=== PATIENT | female | born 1970 | race Caucasian/White ===

== ENCOUNTER 2017-07-15 10:49 | Inpatient (IN) | payer SELFPAY ==
[~2017-07-15] VITALS: Ht 167.6 cm; Wt 53.6 kg
[~2017-07-15 10:49] MED LIST: CLON.1T PO; CLON1 PO; TRAM100T19 PO; VIST25CA PO; ZOFR4TAB3 SL
[2017-07-15 11:14] VITALS: BP 144/71; PULSE 89; RESP 20; TEMP 98.1; O2SAT 100
[2017-07-15] MEDS ORDERED: VANCOMYCIN INJ 1,000 MG in SODIUM CHLOR 0.9% 250 ML INJ 250 ML IV ONE (12:00)
[2017-07-15] MEDS ORDERED: SODIUM CHLOR 0.9% 1000 ML INJ 1,000 ML IV ONE (12:00)
[2017-07-15] MEDS ORDERED: oxyCODONE/ACETAMINOPHEN 5 MG/325 MG TAB PO ONE (12:00)
[2017-07-15 13:36] LABS: HEMATOCRIT 37.3 % (35.0-46.0); HEMOGLOBIN 12.6 GM/DL (11.6-15.3); MEAN CELL VOLUME 82.2 FL (80.0-100.0); MEAN CORPUSCULAR HEMOGLOBIN 27.7 PG (27.0-34.0); MEAN CORPUSCULAR HGB CONC 33.7 % (32.0-36.0); MEAN PLATELET VOLUME 8.5 FL (7.0-11.0); PLATELET COUNT 346 TH/MM3 (150-450); RED BLOOD COUNT 4.54 MIL/MM3 (4.00-5.30); RED CELL DISTRIBUTION WIDTH 14.2 % (11.6-17.2); WHITE BLOOD COUNT 11.8 TH/MM3 (4.0-11.0)
[2017-07-15 13:58] LABS: ALBUMIN 2.8 GM/DL (3.4-5.0); ALT (GPT) 29 U/L (10-53); AST (GOT) 27 U/L (15-37); BICARBONATE 21.8 MEQ/L (21.0-32.0); BLOOD UREA NITROGEN 10 MG/DL (7-18); CALCIUM 8.6 MG/DL (8.5-10.1); CHLORIDE 105 MEQ/L (98-107); CREATININE 0.38 MG/DL (0.50-1.00); GLOMERULAR FILTRATION RATE 182 ML/MIN (>89); GLUCOSE,RANDOM 87 MG/DL (74-106); SODIUM (NA) 138 MEQ/L (136-145)
[2017-07-15 14:00] LABS: ALKALINE PHOSPHATASE 122 U/L (45-117); TOTAL BILIRUBIN ADULT 0.4 MG/DL (0.2-1.0); TOTAL PROTEIN 7.5 GM/DL (6.4-8.2)
[2017-07-15 14:10] LABS: BANDS 7 % (0-6); LYMPHOCYTES 12 % (9-44); MONOCYTES 9 % (0-8); NEUTROPHIL # MANUAL DIFF 9.3 TH/MM3 (1.8-7.7); POLYS (SEG NEUTROPHILS) 72 % (16-70)
[2017-07-15] MEDS ORDERED: IOHEXOL 350 MG/ML 10 ML VIAL (for RAD DIAG) IVCONTRAST ONE (14:30)
--- NOTE | 2017-07-15 14:35 | PD ---
HPI Chief Complaint: Skin Problem Time Seen by Provider: 11:44 Travel History International Travel<30 days: No Contact w/Intl Traveler<30days: No Traveled to known affect area: No History of Present Illness HPI Patient is a 47 year old female who comes in complaining of painful sores to her arms and legs. 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 She says she is trying to quit and moved here from [facility] recently to try and get sober. She says these sores appeared about 4 days ago and have been getting worse. She denies fever or chills. She complains of pain to both arms and her right ankle. Severity is mild to moderate. PFSH Past Medical History Anxiety: Yes Depression: Yes Diminished Hearing: No Hepatitis: Yes (C) Psychiatric: Yes Reproductive: Yes (STD) Immunizations Current: No ?: Not Ectopic : Yes Dilation and Curettage (D&C): Yes Past Surgical History Abdominal Surgery: Yes (ABDOMINAL SURGERY ) Social History Alcohol Use: No Tobacco Use: Yes (1 PPD) Substance Use: Yes (heroine addict ) Allergies-Medications (Allergen,Severity, Reaction): Coded Allergies: No Known Allergies (Verified Allergy, Unknown, 07/15/17) Reported Meds & Prescriptions Reported Meds & Active Scripts Active Review of Systems Except as stated in HPI: all other systems reviewed are Neg General / Constitutional: No: Fever, Chills HENT: No: Headaches, Lightheadedness Cardiovascular: No: Chest Pain or Discomfort Respiratory: No: Shortness of Breath Gastrointestinal: No: Nausea, Vomiting Musculoskeletal: Positive: Pain Skin: Positive Lesions Neurologic: No: Weakness, Dizziness Physical Exam Narrative GENERAL: Awake and alert, in no acute distress. SKIN: Entire left forearm is erythema and warm with weeping sores. Area of erythema to right AC. Area of erythema to right medial malleolus. HEAD: Atraumatic. Normocephalic. EYES: Pupils equal and round. No scleral icterus. EOMI. ENT: Mucous membranes pink and moist. NECK: Trachea midline. No JVD. CARDIOVASCULAR: Regular rate and rhythm. No murmur appreciated. RESPIRATORY: No accessory muscle use. Clear to auscultation. Breath sounds equal bilaterally. GASTROINTESTINAL: Abdomen soft, non-tender, nondistended. MUSCULOSKELETAL: No obvious deformities. No clubbing. No cyanosis. No edema. NEUROLOGICAL: Awake and alert. No obvious cranial nerve deficits. Motor grossly within normal limits. Normal speech. PSYCHIATRIC: Appropriate mood and affect; insight and judgment normal. Data Data Last Documented VS Vital Signs Date Time Temp Pulse Resp B/P (MAP) Pulse Ox O2 Delivery O2 Flow Rate FiO2 07/15/17 11:14 98.1 89 20 144/71 (95) 100 Orders Orders Iv Access Insert/Monitor (07/15/17 11:59) Complete Blood Count With Diff (07/15/17 11:59) Comprehensive Metabolic Panel (07/15/17 11:59) C-Reactive Protein (Crp) (07/15/17 11:59) Ct Forearm W Iv Contrast (07/15/17 ) Ed Urine Pregnancytest Poc (07/15/17 11:59) Oxycodone-Acetamin 5-325 Mg (Percocet (07/15/17 12:00) Sodium Chlor 0.9% 1000 Ml Inj (Ns 1000 M (07/15/17 12:00) Vancomycin Inj (Vancomycin Inj) (07/15/17 12:00) Vascular Access Team Consult/P PRN (07/15/17 12:23) Vascular Poc Ultrasound (07/15/17 ) Iohexol 350 Inj (Omnipaque 350 Inj) (07/15/17 14:30) Wound Culture And Gram Stain (07/15/17 15:10) Admit Order (Ed Use Only) (07/15/17 ) Labs Laboratory Tests Test 07/15/17 12:50 White Blood Count 11.8 TH/MM3 Red Blood Count 4.54 MIL/MM3 Hemoglobin 12.6 GM/DL Hematocrit 37.3 % Mean Corpuscular Volume 82.2 FL Mean Corpuscular Hemoglobin 27.7 PG Mean Corpuscular Hemoglobin Concent 33.7 % Red Cell Distribution Width 14.2 % Platelet Count 346 TH/MM3 Mean Platelet Volume 8.5 FL CBC Comment AUTO DIFF Differential Total Cells Counted 100 Neutrophils % (Manual) 72 % Band Neutrophils % 7 % Lymphocytes % 12 % Monocytes % 9 % Neutrophils # (Manual) 9.3 TH/MM3 Differential Comment FINAL DIFF MANUAL Platelet Estimate NORMAL Platelet Morphology Comment NORMAL Blood Urea Nitrogen 10 MG/DL Creatinine 0.38 MG/DL Random Glucose 87 MG/DL Total Protein 7.5 GM/DL Albumin 2.8 GM/DL Calcium Level 8.6 MG/DL Alkaline Phosphatase 122 U/L Aspartate Amino Transf (AST/SGOT) 27 U/L Alanine Aminotransferase (ALT/SGPT) 29 U/L Total Bilirubin 0.4 MG/DL Sodium Level 138 MEQ/L Potassium Level 4.1 MEQ/L Chloride Level 105 MEQ/L Carbon Dioxide Level 21.8 MEQ/L Anion Gap 11 MEQ/L Estimat Glomerular Filtration Rate 182 ML/MIN C-Reactive Protein 12.20 MG/DL MDM Medical Decision Making Medical Screen Exam Complete: Yes Emergency Medical Condition: Yes Differential Diagnosis cellulitis vs abscess vs bacteremia Narrative Course Patient is a 47-year-old female who comes in complaining of wounds to her arms and legs. Exam shows extensive areas of cellulitis, draining fluid. IV established, labs sent. Labs show elevated white blood cell count with a left shift. Patient given vancomycin. CT of the arm shows extensive area of cellulitis with a small area concerning for an abscess. This was drained after the CT was obtained. Last 24 hours Impressions Upper Extremity CT 07/15/17 0000 Signed Impressions: Service Date/Time: Saturday, July 15, 2017 14:14 - CONCLUSION: There is a small heterogeneously enhancing fluid collection measuring approximately 1 cm x 5 mm along the dorsal aspect of the distal forearm just prior to the wrist. This has the appearance most consistent with a superficial area of abscess. There is fairly diffuse soft tissue swelling. No deep abscess is identified. Ronnie Nick MD Patient has extensive infection to multiple areas of her body, therefore she was admitted for further management. Procedures Procedure Narrative INCISION AND DRAINAGE OF ABSCESS: The area was prepped and was sterilely draped. A subcutaneous wheal of 1 % Xylocaine with a total number 8 mL was used to anesthetize the areas properly. A number 11 scalpel was used to make a 1 -cm incision across the area of the abscesses. The abscess was drained, complex loculations were broken down, and irrigated with normal saline. Cultures were obtained. Sterile dressing applied. Abscess to the left wrist, left forearm and right AC area were drained. Diagnosis Primary Impression: Cellulitis of multiple sites Admitting Information Admitting Physician Requests: Admit Scripts No Active Prescriptions or Reported Meds Beatriz Garces MD Jul 15, 2017 14:35
--- NOTE | 2017-07-15 14:47 | RADRPT ---
EXAM DATE/TIME: 07/15/2017 14:14 [facility] COMPARISON: No previous studies available for comparison. INDICATIONS : Left forearm pain and swelling for ten days. IV CONTRAST: 70 cc Omnipaque 350 (iohexol) IV RADIATION DOSE: 13.29 CTDIvol (mGy) MEDICAL HISTORY : Hepatitis C. SURGICAL HISTORY : None. ENCOUNTER: Initial ACUITY: 2 weeks PAIN SCALE: 7/10 LOCATION: Left forearm TECHNIQUE: Volumetric scanning of the forearm was performed. Using automated exposure control and adjustment of the mA and/or kV according to patient size, radiation dose was kept as low as reasonably achievable to obtain optimal diagnostic quality images. DICOM format image data is available electronically fo r review and comparison. FINDINGS: The examination demonstrates fairly diffuse soft tissue swelling and edema throughout the subcutaneou s soft tissues of the forearm. The study demonstrates a 1.1 x 0.5 cm well-circumscribed heterogeneous fluid collection in the dorsal aspect of the distal forearm just above the level of the wrist. In th e appropriate clinical setting this would be consistent with a superficial area of abscess. There is a punctate collection of gas within the subcutaneous soft tissues along the radial aspect of the fore arm as well. The deep muscle compartment of the forearm and antecubital fossa appear intact. The visualized struct ures of the hand appear intact. CONCLUSION: There is a small heterogeneously enhancing fluid collection measuring approximately 1 cm x 5 mm along the dorsal aspect of the distal forearm just prior to the wrist. This has the appearance most consis tent with a superficial area of abscess. There is fairly diffuse soft tissue swelling. No deep absces s is identified. Ronnie Nick MD on July 15, 2017 at 14:41 Board Certified Radiologist. This report was verified electronically.
[2017-07-15] MEDS ORDERED: NALOXONE HCL 0.4 MG/ML AMP IV PUSH PRN (15:45)
[2017-07-15] MEDS ORDERED: Vancomycin Consult Pharmacy 1 EA OTHER SCH (15:45)
[2017-07-15] MEDS ORDERED: SODIUM CHLORIDE 0.9% FLUSH 10 ML FLUSH IV FLUSH PRN (15:45)
--- NOTE | 2017-07-15 15:55 | HHI.HP ---
[facility] No Primary Care Physician Admission Diagnosis cellulitis, abscess Diagnoses: Travel History International Travel<30 Days: No Contact w/Intl Traveler <30 Da: No Traveled to Known Affected Are: No History of Present Illness History from patient, ER physician communication, and review of medical records. Patient reported that she has been having this pain and swelling in her bilateral forearms for the past 1 week. Denies fever. Reports she does feel however warm subjectively. She admits that she injected IV drugs about 5 days ago. Uses heroin. Denies being diabetic. No prior history of endocarditis. On review of systems, patient reports of 2 days history of diarrhea. However states that he was very tiny little bit. Denies any blood in urine or stool. Denies any urinary burning or pain on urination or frequent urination. Denies any chest pain/palpitations/shortness of breath. Review of Systems Except as stated in HPI: all other systems reviewed are Neg Past Family Social History Past Medical History hepatitis C Past Surgical History cyst from ovary removed Allergies: Coded Allergies: No Known Allergies (Verified Allergy, Unknown, 07/15/17) Family History no medical issues that she knows of except for mom with MS Social History smokes a pack a day occasional marijuana no etoh abuse iv heroine, cocaine Physical Exam Vital Signs Vital Signs Date Time Temp Pulse Resp B/P (MAP) Pulse Ox O2 Delivery O2 Flow Rate FiO2 07/15/17 11:14 98.1 89 20 144/71 (95) 100 Physical Exam GENERAL: This is a thin lady, not in acute distress. SKIN: Bilateral forearms with multiple skin ulcerations/abscesses. Right lower extremity near the ankle with redness and possible abscess. HEAD: Atraumatic. Normocephalic. No temporal or scalp tenderness. EYES: No scleral icterus. No injection or drainage. ENT: Nose without bleeding, purulent drainage or septal hematomaAirway patent. NECK: Trachea midline. No JVD Supple, nontender, no meningeal signs. CARDIOVASCULAR: Regular rate and rhythm without murmurs, gallops, or rubs. RESPIRATORY: Clear to auscultation. Breath sounds equal bilaterally. No wheezes , rales, or rhonchi. GASTROINTESTINAL: Abdomen soft, non-tender, nondistended.. No guarding. MUSCULOSKELETAL: Extremities without clubbing, cyanosis, or edemaNo calf tenderness. NEUROLOGICAL: Awake and alert. Motor and sensory grossly within normal limits. Normal speech. Laboratory Laboratory Tests Test 07/15/17 12:50 White Blood Count 11.8 Red Blood Count 4.54 Hemoglobin 12.6 Hematocrit 37.3 Mean Corpuscular Volume 82.2 Mean Corpuscular Hemoglobin 27.7 Mean Corpuscular Hemoglobin Concent 33.7 Red Cell Distribution Width 14.2 Platelet Count 346 Mean Platelet Volume 8.5 CBC Comment AUTO DIFF Differential Total Cells Counted 100 Neutrophils % (Manual) 72 Band Neutrophils % 7 Lymphocytes % 12 Monocytes % 9 Neutrophils # (Manual) 9.3 Differential Comment FINAL DIFF MANUAL Platelet Estimate NORMAL Platelet Morphology Comment NORMAL Blood Urea Nitrogen 10 Creatinine 0.38 Random Glucose 87 Total Protein 7.5 Albumin 2.8 Calcium Level 8.6 Alkaline Phosphatase 122 Aspartate Amino Transf (AST/SGOT) 27 Alanine Aminotransferase (ALT/SGPT) 29 Total Bilirubin 0.4 Sodium Level 138 Potassium Level 4.1 Chloride Level 105 Carbon Dioxide Level 21.8 Anion Gap 11 Estimat Glomerular Filtration Rate 182 C-Reactive Protein 12.20 Result Diagram: 07/15/17 1250 07/15/17 1250 Imaging Last 48 hours Impressions Upper Extremity CT 07/15/17 0000 Signed Impressions: Service Date/Time: Saturday, July 15, 2017 14:14 - CONCLUSION: There is a small heterogeneously enhancing fluid collection measuring approximately 1 cm x 5 mm along the dorsal aspect of the distal forearm just prior to the wrist. This has the appearance most consistent with a superficial area of abscess. There is fairly diffuse soft tissue swelling. No deep abscess is identified. Ronnie Nick MD Caprini VTE Risk Assessment Caprini VTE Risk Assessment: Mod/High Risk (score >= 2) Caprini Risk Assessment Model Point Value = 1 Point Value = 2 Point Value = 3 Point Value = 5 Age 41-60 Minor surgery BMI > 25 kg/m2 Swollen legs Varicose veins or History of unexplained or recurrent spontaneous Oral contraceptives or hormone replacement Sepsis (< 1 month) Serious lung disease, including pneumonia (< 1 month) Abnormal pulmonary function Acute myocardial infarction Congestive heart failure (< 1 month) History of inflammatory bowel disease Medical patient at bed rest Age 61-74 Arthroscopic surgery Major open surgery (> 45 min) Laparoscopic surgery (> 45 min) Malignancy Confined to bed (> 72 hours) Immobilizing plaster cast Central venous access Age >= 75 History of VTE Family history of VTE Factor V Leiden Prothrombin [id number] Lupus anticoagulant Anticardiolipin antibodies Elevated serum homocysteine Heparin-induced thrombocytopenia Other congenital or acquired thrombophilia Stroke (< 1 month) Elective arthroplasty Hip, pelvis, or leg fracture Acute spinal cord injury (< 1 month) Prophylaxis Regimen Total Risk Factor Score Risk Level Prophylaxis Regimen 0-1 Low Early ambulation 2 Moderate Order ONE of the following: *Sequential Compression Device (SCD) *Heparin 5000 units SQ BID 3-4 Higher Order ONE of the following medications: *Heparin 5000 units SQ TID *Enoxaparin/Lovenox 40 mg SQ daily (WT < 150 kg, CrCl > 30 mL/min) *Enoxaparin/Lovenox 30 mg SQ daily (WT < 150 kg, CrCl > 10-29 mL/min) *Enoxaparin/Lovenox 30 mg SQ BID (WT < 150 kg, CrCl > 30 mL/min) AND/OR *Sequential Compression Device (SCD) 5 or more Highest Order ONE of the following medications: *Heparin 5000 units SQ TID (Preferred with Epidurals) *Enoxaparin/Lovenox 40 mg SQ daily (WT < 150 kg, CrCl > 30 mL/min) *Enoxaparin/Lovenox 30 mg SQ daily (WT < 150 kg, CrCl > 10-29 mL/min) *Enoxaparin/Lovenox 30 mg SQ BID (WT < 150 kg, CrCl > 30 mL/min) AND *Sequential Compression Device (SCD) Assessment and Plan Assessment and Plan Impression: Multiple skin abscesses in bilateral forearm. Possible left lower extremity near the ankle abscess. IV drug abuse. Rule out endocarditis Plan: I have discussed in detail with ER physician. Patient has abscess drained one on the right side and 2 on the left side of her bilateral forearms. These abscesses were drained after the CT was obtained. CT was done that of left upper extremity. The left lower extremity was thought to be nonfluctuant and not abscess formation. The ER physician will recheck and if needed, will try it again. I would obtain ultrasounds also to make sure that there is no underlying abscess. -on RIGHT UE and RIGHT LE Continue on vancomycin and Zosyn for creatinine clearance and levels. Echocardiogram in a.m. We will follow clinical progress. If needed, will consult orthopedics. DVT prophylaxis with ambulation. Discussed Condition With Patient, ER physician Physician Certification 2 Midnight Certification Type: Admission for Inpatient Services Order for Inpatient Services The services are ordered in accordance with Medicare regulations or non- Medicare payer requirements, as applicable. In the case of services not specified as inpatient-only, they are appropriately provided as inpatient services in accordance with the 2-midnight benchmark. Estimated LOS (days): 2 days is the estimated time the patient will need to remain in the hospital, assuming treatment plan goals are met and no additional complications. Post-Hospital Plan: Home Meagan Abad MD Jul 15, 2017 15:55
[2017-07-15 16:30] VITALS: BP 118/57; PULSE 76; RESP 18; O2SAT 99
[2017-07-15] MEDS: KETOROLAC TROMETHAMINE 30 MG/ML (IVP) VIAL IV PUSH PRN (16:44)
[2017-07-15] MEDS: PIPERACIL-TAZO 4.5 GM PREMIX 100 ML IV SCH ×2 (16:45→22:39)
--- NOTE | 2017-07-15 18:55 | RADRPT ---
EXAM DATE/TIME: 07/15/2017 18:10 [facility] COMPARISON: No previous studies available for comparison. INDICATIONS : Right leg swelling. MEDICAL HISTORY : Hepatitis C. . IVDU. Depression. Anxiety. STD. Ectopic . SURGICAL HISTORY : Dilation and curettage. ENCOUNTER: Initial ACUITY: 1 week PAIN SCORE: 6/10 LOCATION: Right leg. AREA EVALUATED: Right Medial Ankle. FINDINGS: There is a complex subcutaneous fluid collection in the right ankle in the area of redness and pain m easuring up to about 4.2 cm in length and 5 mm in thickness. This may represent a subcutaneous absces s. There is increased vascularity to this area. CONCLUSION: 1. Complex subcutaneous fluid collection in the right ankle in the area of redness and pain most collette acteristic of a subcutaneous abscess. Robert Diggs MD on July 15, 2017 at 18:51 Board Certified Radiologist. This report was verified electronically.
--- NOTE | 2017-07-15 19:06 | RADRPT ---
EXAM DATE/TIME: 07/15/2017 18:16 [facility] COMPARISON: No previous studies available for comparison. INDICATIONS : Right arm swelling. MEDICAL HISTORY : . Hepatitis C. IVDU. Depression. Anxiety. STD. Ectopic . SURGICAL HISTORY : Dilation and curettage. ENCOUNTER: Initial ACUITY: 1 week PAIN SCORE: 8/10 LOCATION: Right arm. AREA EVALUATED: Right antecubital fossa. FINDINGS: In the right cubital fossa there are complex fluid collections/phlegmonous masses with increased vasc ularity measuring up to 3.5 x 3.2 x 0.9 cm and 2 x 2 0.7 x 1.1 cm. There are also borderline enlarged lymph nodes adjacent to the brachial artery and veins CONCLUSION: 1. Fluid collections/phlegmonous masses in the antecubital fossa with measurements above likely relat ed to IV drug abuse. Robert Diggs MD on July 15, 2017 at 19:01 Board Certified Radiologist. This report was verified electronically.
[2017-07-15 20:00] VITALS: BP 136/78; PULSE 69; RESP 18; TEMP 98.1; O2SAT 98
[2017-07-15] MEDS: VANCOMYCIN 1,000 MG/NS 250 ML IV SCH ×2 (21:08)
[2017-07-15] MEDS: SODIUM CHLORIDE 0.9% FLUSH 10 ML FLUSH IV FLUSH SCH (21:19)
[2017-07-15] MEDS ORDERED: diphenhydrAMINE HCL 50 MG CAP PO ONE (22:15)
[2017-07-15] MEDS ORDERED: MORPHINE SULFATE 4 MG/ML INJ IV PUSH ONE (22:15)
[2017-07-15] MEDS: PROCHLORPERAZINE INJ 10 MG/2 ML VIAL IV PUSH PRN (22:38)
[2017-07-16] VITALS (7 sets, daily range): BP systolic 121–128; BP diastolic 62–70; PULSE 53–77; RESP 18–20; TEMP 97.9–98.5; O2SAT 97–100
[2017-07-16] MEDS: PIPERACIL-TAZO 4.5 GM PREMIX 100 ML IV SCH ×4 (03:07→20:17)
[2017-07-16] MEDS: KETOROLAC TROMETHAMINE 30 MG/ML (IVP) VIAL IV PUSH PRN ×3 (04:08→16:23)
[2017-07-16] MEDS: VANCOMYCIN 1,000 MG/NS 250 ML IV SCH ×4 (04:09→13:13)
--- NOTE | 2017-07-16 05:53 | PD.PN.STU ---
Subjective Remarks Follow up for multiple skin abscesses on bilateral upper and lower extremities. Patient reports her pain is well controlled and she feels much better after the bedside I&D yesterday. She denies fever, chills, palpitations, nvd. Objective Vitals Vital Signs Date Time Temp Pulse Resp B/P (MAP) Pulse Ox O2 Delivery O2 Flow Rate FiO2 07/15/17 20:00 98.1 69 18 136/78 (97) 98 07/15/17 16:30 76 18 118/57 (77) 99 Room Air 07/15/17 11:14 98.1 89 20 144/71 (95) 100 I/O 07/15/17 07/15/17 07/15/17 07/16/17 07/16/17 07/16/17 07:00 15:00 23:00 07:00 15:00 23:00 Intake Total 250 ml 440 ml Balance 250 ml 440 ml Intake Oral 240 ml IV Total 250 ml 200 ml # Voids 2 Result Diagram: 07/15/17 1250 07/15/17 1250 Imaging Last Impressions Upper Extremity Ultrasound 07/15/17 0000 Signed Impressions: Service Date/Time: Saturday, July 15, 2017 18:16 - CONCLUSION: 1. Fluid collections/phlegmonous masses in the antecubital fossa with measurements above likely related to IV drug abuse. Robert Diggs MD Upper Extremity CT 07/15/17 0000 Signed Impressions: Service Date/Time: Saturday, July 15, 2017 14:14 - CONCLUSION: There is a small heterogeneously enhancing fluid collection measuring approximately 1 cm x 5 mm along the dorsal aspect of the distal forearm just prior to the wrist. This has the appearance most consistent with a superficial area of abscess. There is fairly diffuse soft tissue swelling. No deep abscess is identified. Ronnie Nick MD Lower Extremity Ultrasound 07/15/17 0000 Signed Impressions: Service Date/Time: Saturday, July 15, 2017 18:10 - CONCLUSION: 1. Complex subcutaneous fluid collection in the right ankle in the area of redness and pain most characteristic of a subcutaneous abscess. Robert Diggs MD Objective Remarks GENERAL: Alert, orientedx3, NAD SKIN: Warm and dry. HEAD: Normocephalic. EYES: No scleral icterus. No injection or drainage. NECK: Supple, trachea midline. No JVD or lymphadenopathy. CARDIOVASCULAR: Regular rate and rhythm without murmurs, gallops, or rubs. RESPIRATORY: Breath sounds equal bilaterally. No accessory muscle use. GASTROINTESTINAL: Abdomen soft, non-tender, nondistended. MUSCULOSKELETAL: No cyanosis, or edema. Multiple small cutaneous abscesses on right and left arms, some with small amount of drainage. Erythema around right ankle. No fluctuance noted. BACK: Nontender without obvious deformity. No CVA tenderness. Procedures Bediside I&D in ED on 07/15/17 INCISION AND DRAINAGE OF ABSCESS: The area was prepped and was sterilely draped. A subcutaneous wheal of 1 % Xylocaine with a total number 8 mL was used to anesthetize the areas properly. A number 11 scalpel was used to make a 1 -cm incision across the area of the abscesses. The abscess was drained, complex loculations were broken down, and irrigated with normal saline. Cultures were obtained. Sterile dressing applied. Abscess to the left wrist, left forearm and right AC area were drained. A/P Assessment and Plan The patient is a pleasant 47 year old female with a history of IV drug abuse who presented to the ER with multiple painful abscesses on her forearms and legs. Abscesses to the left wrist, left forearm and right AC area were drained. IV drug abuse Multiple skin abscesses in bilateral forearm. Possible left lower extremity near the ankle abscess. U/S revealed subcutaneous fluid connections of UE and LE Patient has abscess drained one on the right side and 2 on the left side of her bilateral forearms. These abscesses were drained after the CT was obtained. CT was done that of left upper extremity. CT revealed superficial abscesses with no evidence of deep abscesses. The left lower extremity was thought to be nonfluctuant and not abscess formation. Ortho consulted, Dr. Muñoz recommends continuation of IV antibiotics and repeat bedside I&D's, no role for ortho surgery at this time. Continue on vancomycin and Zosyn Gram stain on 07/15 revealed gram negative rods Blood cultures show no growth for one day on 07/16 Echocardiogram pending blood cultures, no hx of endocarditis DVT prophylaxis with ambulation. Patient was seen and examined. Case discussed length with Isai Hoffmann MSIII. Agree with above note. Isai Hoffmann M3 Jul 16, 2017 05:53 Valerie Cutler MD Jul 16, 2017 14:29
[2017-07-16] MEDS: PROCHLORPERAZINE INJ 10 MG/2 ML VIAL IV PUSH PRN ×3 (06:47→20:17)
--- NOTE | 2017-07-16 07:45 | MB ---
cc: Shan Muñoz MD DATE: 07/16/2017 REASON FOR CONSULTATION: Multiple skin abscesses on bilateral upper extremities and bilateral lower extremities. CONSULTING PHYSICIAN: Dr. Abad. HISTORY OF PRESENT ILLNESS: Monae is a 27-year-old female who has a history of IV drug use. She has had multiple abscesses form on bilateral arms and bilateral legs. She presented to the emergency room with redness, pain and swelling of her forearms and legs. She was found to have multiple superficial abscesses. She underwent lancing of multiple abscesses of her arms in the emergency room. She has been admitted for IV antibiotics. She states that her pain and redness has improved significantly. PAST MEDICAL HISTORY: Hepatitis C. PAST SURGICAL HISTORY: Ovarian cyst removal. ALLERGIES: NONE. MEDICATIONS: Please see EMR for inpatient medications. FAMILY HISTORY: Positive for multiple sclerosis in her mother. SOCIAL HISTORY: The patient smokes a pack cigarettes a day. She uses occasional marijuana. She uses IV heroin and cocaine. REVIEW OF SYSTEMS: The patient denies headache, visual changes, neck pain, chest pain, shortness of breath, abdominal pain, nausea, vomiting or recent weight loss. She complains of bilateral arm and bilateral ankle redness, pain and swelling. PHYSICAL EXAMINATION: GENERAL: The patient is a 47-year-old female. She is awake and alert. She is in no acute distress. VITAL SIGNS: Temperature 98.5, pulse 69, respirations 18, blood pressure 121/62, O2 saturation 97% on room air. HEENT: Head: The patient is normocephalic. Pupils are equal. NECK: Soft, nontender. The trachea is in the midline. ABDOMEN: Soft, nontender, nondistended. EXTREMITIES: Examination of the left arm reveals no significant pain with shoulder, elbow or wrist motion. She has multiple small cutaneous abscesses. Some of these have been drained. There is a small amount of drainage coming from multiple areas of skin ulceration. Forearm compartments are soft. No fluctuance is noted. Examination of the right arm also reveals no significant pain with shoulder, elbow and wrist motion. She has good cap refill in her fingers. Radial pulse is palpable. She has multiple superficial cutaneous abscesses. There is no significant fluctuance noted. Examination of bilateral lower extremities reveals no obvious pain or deformity with hip, knee or ankle motion. She has intact sensation in both feet. She does have some redness around both ankles. No fluctuance is noted. LABORATORY DATA: The patient has a white blood cell count of 11.8, hematocrit of 37.3, platelet count 346. BUN is 10 and creatinine of 0.38. A CT scan of the left forearm was reviewed. CT scan reveals a small area of fluid over the dorsum of the wrist. No deep abscess or fluid collection is noted. IMPRESSION: 1. IV drug abuse. 2. Multiple cutaneous abscesses of bilateral arms and bilateral legs. PLAN: At this point, I would recommend continuation of IV antibiotics. There does not appear to be any areas of deep abscesses. These appear to be superficial cutaneous abscesses. These may be lanced at bedside if necessary. These abscesses do not appear to require orthopedic surgical intervention at this time. I discussed with the patient the need to stop injecting drugs, as well as to stop smoking to help resolve her infections. All questions were answered. A mid-level provider in my office, nurse practitioner or PA, may see this patient on a follow-up basis and continue to implement the objective of this plan including: Starting or adjusting medications, injections of muscle, tendon, bursa or joints, cast application, orthotic or brace application, physical therapy, further radiographic studies including x-ray, MRI, CT, ultrasounds or bone scan, vascular studies, neurologic studies, or other specialist consultations, and proceeding with surgical management as appropriate. MD SHERICE Pack/LELAND , 07:25 AM , 07:44 AM
[2017-07-16 08:27] LABS: HEMATOCRIT 42.8 % (35.0-46.0); HEMOGLOBIN 14.4 GM/DL (11.6-15.3); MEAN CELL VOLUME 80.8 FL (80.0-100.0); MEAN CORPUSCULAR HEMOGLOBIN 27.2 PG (27.0-34.0); MEAN CORPUSCULAR HGB CONC 33.6 % (32.0-36.0); MEAN PLATELET VOLUME 8.1 FL (7.0-11.0); PLATELET COUNT 247 TH/MM3 (150-450); RED CELL DISTRIBUTION WIDTH 14.3 % (11.6-17.2); WHITE BLOOD COUNT 5.8 TH/MM3 (4.0-11.0)
[2017-07-16 08:29] LABS: BICARBONATE 24.1 MEQ/L (21.0-32.0); CALCIUM 8.5 MG/DL (8.5-10.1); CREATININE 0.58 MG/DL (0.50-1.00)
[2017-07-16 09:01] LABS: ATYPICAL LYMPHOCYTES 9 % (0-0); BANDS 3 % (0-6); LYMPHOCYTES 27 % (9-44); MONOCYTES 4 % (0-8); NEUTROPHIL # MANUAL DIFF 3.5 TH/MM3 (1.8-7.7); POLYS (SEG NEUTROPHILS) 57 % (16-70)
[2017-07-16] MEDS: SODIUM CHLORIDE 0.9% FLUSH 10 ML FLUSH IV FLUSH SCH ×2 (10:30→20:17)
[2017-07-16] MEDS ORDERED: PHARMACY ORDERED LAB ONE (12:45)
--- NOTE | 2017-07-16 14:19 | HHI.PR ---
Subjective Remarks Patient reports her pain is well controlled and she feels much better after the bedside I&D yesterday. She denies fever, chills, palpitations. Has some nausea controlled by antiemetics, able to eat and keep down some food. Objective Vitals Vital Signs Date Time Temp Pulse Resp B/P (MAP) Pulse Ox O2 Delivery O2 Flow Rate FiO2 07/16/17 12:04 98.1 53 20 126/62 (83) 100 07/16/17 08:00 77 07/16/17 07:34 97.9 59 19 128/69 (88) 98 07/16/17 06:02 98.5 69 18 121/62 (81) 97 07/16/17 04:00 77 07/15/17 20:00 98.1 69 18 136/78 (97) 98 07/15/17 16:30 76 18 118/57 (77) 99 Room Air I/O 07/15/17 07/15/17 07/15/17 07/16/17 07/16/17 07/16/17 07:00 15:00 23:00 07:00 15:00 23:00 Intake Total 250 ml 690 ml 100 ml Balance 250 ml 690 ml 100 ml Intake Oral 240 ml IV Total 250 ml 450 ml 100 ml # Voids 2 Result Diagram: 07/16/17 0756 07/16/17 0756 Imaging Last Impressions Upper Extremity Ultrasound 07/15/17 0000 Signed Impressions: Service Date/Time: Saturday, July 15, 2017 18:16 - CONCLUSION: 1. Fluid collections/phlegmonous masses in the antecubital fossa with measurements above likely related to IV drug abuse. Robert Diggs MD Upper Extremity CT 07/15/17 0000 Signed Impressions: Service Date/Time: Saturday, July 15, 2017 14:14 - CONCLUSION: There is a small heterogeneously enhancing fluid collection measuring approximately 1 cm x 5 mm along the dorsal aspect of the distal forearm just prior to the wrist. This has the appearance most consistent with a superficial area of abscess. There is fairly diffuse soft tissue swelling. No deep abscess is identified. Ronnie Nick MD Lower Extremity Ultrasound 07/15/17 0000 Signed Impressions: Service Date/Time: Saturday, July 15, 2017 18:10 - CONCLUSION: 1. Complex subcutaneous fluid collection in the right ankle in the area of redness and pain most characteristic of a subcutaneous abscess. Robert Diggs MD Objective Remarks GENERAL: Alert, orientedx3, NAD SKIN: Warm and dry. Tracking sarah on legs and arms. Multiple abscessed on upper arms. HEAD: Normocephalic. EYES: No scleral icterus. No injection or drainage. NECK: Supple, trachea midline. No JVD or lymphadenopathy. CARDIOVASCULAR: Regular rate and rhythm without murmurs, gallops, or rubs. RESPIRATORY: Breath sounds equal bilaterally. No accessory muscle use. GASTROINTESTINAL: Abdomen soft, non-tender, nondistended. MUSCULOSKELETAL: No cyanosis, or edema. Multiple small cutaneous abscesses on right and left arms, some with small amount of drainage. Erythema around right ankle. No fluctuance noted. Procedures Bediside I&D in ED on 07/15/17 A/P Assessment and Plan The patient is a pleasant 47 year old female with a history of IV drug abuse who presented to the ER with multiple painful abscesses on her forearms and legs. Abscesses to the left wrist, left forearm and right AC area were drained. IV drug abuse Multiple skin abscesses in bilateral forearm. Possible left lower extremity near the ankle abscess. U/S revealed subcutaneous fluid connections of UE and LE Patient has abscess drained one on the right side and 2 on the left side of her bilateral forearms. These abscesses were drained after the CT was obtained. CT was done that of left upper extremity. CT revealed superficial abscesses with no evidence of deep abscesses. The left lower extremity was thought to be nonfluctuant and not abscess formation. Ortho consulted, Dr. Muñoz recommends continuation of IV antibiotics and repeat bedside I&D's, no role for ortho surgery at this time. Continue on vancomycin and Zosyn Gram stain on 07/15 revealed gram negative rods Blood cultures show no growth for one day on 07/16 Echocardiogram if blood cultures are positive, no hx of endocarditis DVT prophylaxis with ambulation. Discussed with the patient, nurse QUEENIE plan pending improvement, f/u blood cx Valerie Cutler MD Jul 16, 2017 14:19
[2017-07-16] MEDS ORDERED: LACTULOSE SYRUP 20 GM/30 ML CUP PO PRN (17:45)
[2017-07-16] MEDS ORDERED: BISACODYL 10 MG SUPP RECTAL PRN (17:45)
[2017-07-16] MEDS ORDERED: NALOXONE HCL 0.4 MG/ML AMP IV PUSH PRN (17:45)
[2017-07-16] MEDS ORDERED: SENNOSIDES 8.6 MG TAB PO PRN (17:45)
[2017-07-16] MEDS ORDERED: MAGNESIUM HYDROXIDE SUSP 30 ML CUP PO PRN (17:45)
[2017-07-16] MEDS: DOCUSATE SODIUM 50 MG/SENNA 8.6 MG TAB PO SCH (20:05)
[2017-07-16] MEDS ORDERED: MORPHINE SULFATE 4 MG/ML INJ IV PUSH ONE (20:15)
[2017-07-16] MEDS ORDERED: diphenhydrAMINE HCL 50 MG/ML VIAL IV PUSH ONE (20:15)
[2017-07-16] MEDS: VANCOMYCIN INJ 1,250 MG in SODIUM CHLOR 0.9% 250 ML INJ 250 ML IV SCH (23:48)
[2017-07-17] VITALS (7 sets, daily range): BP systolic 96–147; BP diastolic 53–79; PULSE 57–77; RESP 16–18; TEMP 97.5–98.4; O2SAT 96–99
[2017-07-17] MEDS: KETOROLAC TROMETHAMINE 30 MG/ML (IVP) VIAL IV PUSH PRN ×3 (04:49→18:21)
[2017-07-17] MEDS: PROCHLORPERAZINE INJ 10 MG/2 ML VIAL IV PUSH PRN (04:49)
[2017-07-17] MEDS: PIPERACIL-TAZO 4.5 GM PREMIX 100 ML IV SCH ×4 (04:51→22:11)
[2017-07-17] MEDS: DOCUSATE SODIUM 50 MG/SENNA 8.6 MG TAB PO SCH ×2 (08:58→21:00)
[2017-07-17] MEDS: SODIUM CHLORIDE 0.9% FLUSH 10 ML FLUSH IV FLUSH SCH ×2 (08:58→22:11)
[2017-07-17] MEDS: LACTOBACILLUS ACIDOPHILUS TAB PO SCH ×2 (09:44→22:11)
[2017-07-17] MEDS: VANCOMYCIN INJ 1,250 MG in SODIUM CHLOR 0.9% 250 ML INJ 250 ML IV SCH (11:16)
--- NOTE | 2017-07-17 12:22 | HHI.PR ---
Subjective Remarks In bed ., sleepy says she feels a little improved today. Still nauseated byt able to keep some food down. Less diarrhea. No fever or chills overnight. No chest pain or palpitations. Objective Vitals Vital Signs Date Time Temp Pulse Resp B/P (MAP) Pulse Ox O2 Delivery O2 Flow Rate FiO2 07/17/17 11:33 97.7 63 18 147/69 (95) 98 07/17/17 07:45 98.4 57 18 131/74 (93) 97 07/17/17 04:00 68 07/17/17 04:00 97.8 61 16 97 07/17/17 00:00 65 07/17/17 00:00 97.9 76 16 110/62 (78) 96 07/16/17 20:00 74 07/16/17 15:50 98.4 60 20 126/70 (88) 97 I/O 07/16/17 07/16/17 07/16/17 07/17/17 07/17/17 07/17/17 07:00 15:00 23:00 07:00 15:00 23:00 Intake Total 690 ml 350 ml 680 ml 802.5 ml Output Total 2 ml Balance 690 ml 350 ml 680 ml 802.5 ml -2 ml Intake Oral 240 ml 480 ml 440 ml IV Total 450 ml 350 ml 200 ml 362.5 ml Output Stool Total 2 ml # Voids 2 3 4 Result Diagram: 07/16/17 0756 07/16/17 0756 Imaging Last Impressions Upper Extremity Ultrasound 07/15/17 0000 Signed Impressions: Service Date/Time: Saturday, July 15, 2017 18:16 - CONCLUSION: 1. Fluid collections/phlegmonous masses in the antecubital fossa with measurements above likely related to IV drug abuse. Robert Diggs MD Upper Extremity CT 07/15/17 0000 Signed Impressions: Service Date/Time: Saturday, July 15, 2017 14:14 - CONCLUSION: There is a small heterogeneously enhancing fluid collection measuring approximately 1 cm x 5 mm along the dorsal aspect of the distal forearm just prior to the wrist. This has the appearance most consistent with a superficial area of abscess. There is fairly diffuse soft tissue swelling. No deep abscess is identified. Ronnie Nick MD Lower Extremity Ultrasound 07/15/17 0000 Signed Impressions: Service Date/Time: Saturday, July 15, 2017 18:10 - CONCLUSION: 1. Complex subcutaneous fluid collection in the right ankle in the area of redness and pain most characteristic of a subcutaneous abscess. Robert Diggs MD Objective Remarks GENERAL: Alert, orientedx3, NAD SKIN: Warm and dry. Tracking sarah on legs and arms. Multiple abscessed on upper arms. HEAD: Normocephalic. EYES: No scleral icterus. No injection or drainage. NECK: Supple, trachea midline. No JVD or lymphadenopathy. CARDIOVASCULAR: Regular rate and rhythm without murmurs, gallops, or rubs. RESPIRATORY: Breath sounds equal bilaterally. No accessory muscle use. GASTROINTESTINAL: Abdomen soft, non-tender, nondistended. MUSCULOSKELETAL: No cyanosis, or edema. Multiple small cutaneous abscesses on right and left arms, some with small amount of drainage. Erythema around right ankle. No fluctuance noted. Procedures Bediside I&D in ED on 07/15/17 A/P Assessment and Plan The patient is a pleasant 47 year old female with a history of IV drug abuse who presented to the ER with multiple painful abscesses on her forearms and legs. Abscesses to the left wrist, left forearm and right AC area were drained. IV drug abuse Multiple skin abscesses in bilateral forearm. Possible left lower extremity near the ankle abscess. U/S revealed subcutaneous fluid connections of UE and LE Patient has abscess drained one on the right side and 2 on the left side of her bilateral forearms. These abscesses were drained after the CT was obtained. CT was done that of left upper extremity. CT revealed superficial abscesses with no evidence of deep abscesses. The left lower extremity was thought to be nonfluctuant and not abscess formation. Ortho consulted, Dr. Muñoz recommends continuation of IV antibiotics and repeat bedside I&D's, no role for ortho surgery at this time. Continue on vancomycin and Zosyn Gram stain on 07/15 revealed gram negative rods Blood cultures show no growth for one day on 07/16 Echocardiogram if blood cultures are positive, no hx of endocarditis DVT prophylaxis with ambulation. Discussed with the patient, nurse DC plan pending improvement, f/u blood cx Valerie Cutler MD Jul 17, 2017 12:22
[2017-07-17] MEDS ORDERED: diphenhydrAMINE HCL 50 MG CAP PO ONE (22:45)
[2017-07-18 00:13] VITALS: PULSE 60
[2017-07-18 00:30] VITALS: BP 125/70; PULSE 67; RESP 18; TEMP 98.1; O2SAT 98
[2017-07-18] MEDS: VANCOMYCIN INJ 1,250 MG in SODIUM CHLOR 0.9% 250 ML INJ 250 ML IV SCH (01:06)
[2017-07-18] MEDS: KETOROLAC TROMETHAMINE 30 MG/ML (IVP) VIAL IV PUSH PRN ×2 (01:06→06:54)
[2017-07-18] MEDS: PROCHLORPERAZINE INJ 10 MG/2 ML VIAL IV PUSH PRN (01:25)
[2017-07-18 05:30] VITALS: BP 137/74; PULSE 60; RESP 18; TEMP 98; O2SAT 99
--- NOTE | 2017-07-18 05:49 | PD.PN.STU ---
Subjective Remarks Follow up for multiple skin abscesses. Patient says she feels well and is ready for discharge. She does report one episode of n/v overnight. Pain well- controlled. She denies fever, chills, chest pain, SOB. Objective Vitals Vital Signs Date Time Temp Pulse Resp B/P (MAP) Pulse Ox O2 Delivery O2 Flow Rate FiO2 07/18/17 00:30 98.1 67 18 125/70 (88) 98 07/18/17 00:13 60 07/17/17 21:00 98.3 61 18 133/64 (87) 97 07/17/17 21:00 97.5 60 18 96/53 (67) 99 07/17/17 19:53 67 07/17/17 16:12 97.9 61 18 131/79 (96) 98 07/17/17 11:33 97.7 63 18 147/69 (95) 98 07/17/17 07:45 98.4 57 18 131/74 (93) 97 I/O 07/17/17 07/17/17 07/17/17 07/18/17 07/18/17 07/18/17 07:00 15:00 23:00 07:00 15:00 23:00 Intake Total 802.5 ml 720 ml Output Total 2 ml Balance 802.5 ml -2 ml 720 ml Intake Oral 440 ml 720 ml IV Total 362.5 ml Output Stool Total 2 ml # Voids 4 4 2 Result Diagram: 07/16/17 0756 07/16/17 0756 Imaging Last Impressions Upper Extremity Ultrasound 07/15/17 0000 Signed Impressions: Service Date/Time: Saturday, July 15, 2017 18:16 - CONCLUSION: 1. Fluid collections/phlegmonous masses in the antecubital fossa with measurements above likely related to IV drug abuse. Robert Diggs MD Upper Extremity CT 07/15/17 0000 Signed Impressions: Service Date/Time: Saturday, July 15, 2017 14:14 - CONCLUSION: There is a small heterogeneously enhancing fluid collection measuring approximately 1 cm x 5 mm along the dorsal aspect of the distal forearm just prior to the wrist. This has the appearance most consistent with a superficial area of abscess. There is fairly diffuse soft tissue swelling. No deep abscess is identified. Ronnie Nick MD Lower Extremity Ultrasound 07/15/17 0000 Signed Impressions: Service Date/Time: Saturday, July 15, 2017 18:10 - CONCLUSION: 1. Complex subcutaneous fluid collection in the right ankle in the area of redness and pain most characteristic of a subcutaneous abscess. Robert Diggs MD Objective Remarks GENERAL: Alert, orientedx3, NAD SKIN: Warm and dry. Tracking sarah on legs and arms. Multiple healing abscesses on upper arms. HEAD: Normocephalic. EYES: No scleral icterus. No injection or drainage. NECK: Supple, trachea midline. No JVD or lymphadenopathy. CARDIOVASCULAR: Regular rate and rhythm without murmurs, gallops, or rubs. RESPIRATORY: Breath sounds equal bilaterally. No accessory muscle use. GASTROINTESTINAL: Abdomen soft, non-tender, nondistended. MUSCULOSKELETAL: No cyanosis, or edema. Multiple small cutaneous abscesses on right and left arms, some with small amount of drainage. Erythema around right ankle. No fluctuance noted. Procedures Bediside I&D in ED on 07/15/17 INCISION AND DRAINAGE OF ABSCESS: The area was prepped and was sterilely draped. A subcutaneous wheal of 1 % Xylocaine with a total number 8 mL was used to anesthetize the areas properly. A number 11 scalpel was used to make a 1 -cm incision across the area of the abscesses. The abscess was drained, complex loculations were broken down, and irrigated with normal saline. Cultures were obtained. Sterile dressing applied. Abscess to the left wrist, left forearm and right AC area were drained. A/P Assessment and Plan The patient is a pleasant 47 year old female with a history of IV drug abuse who presented to the ER with multiple painful abscesses on her forearms and legs. Abscesses to the left wrist, left forearm and right AC area were drained. IV drug abuse Multiple skin abscesses in bilateral forearm. Possible left lower extremity near the ankle abscess. U/S revealed subcutaneous fluid connections of UE and LE Patient has abscess drained one on the right side and 2 on the left side of her bilateral forearms. These abscesses were drained after the CT was obtained. CT was done that of left upper extremity. CT revealed superficial abscesses with no evidence of deep abscesses. The left lower extremity was thought to be nonfluctuant and not abscess formation. Ortho consulted, Dr. Muñoz recommends continuation of IV antibiotics and repeat bedside I&D's, no role for ortho surgery at this time. Continue on vancomycin and Zosyn Gram stain on 07/15 revealed gram negative rods Blood cultures show no growth for one day on 07/16 Echocardiogram pending blood cultures, no hx of endocarditis Blood cultures remain negative for growth on 07/18 DVT prophylaxis with ambulation. D/C today Isai Hoffmann M3 Jul 18, 2017 05:48
[2017-07-18] MEDS: PIPERACIL-TAZO 4.5 GM PREMIX 100 ML IV SCH ×2 (05:54→09:17)
[2017-07-18 08:15] VITALS: BP 146/64; PULSE 64; RESP 20; TEMP 97.6; O2SAT 99
[2017-07-18 08:53] LABS: AUTOMATED NEUTROPHIL # 4.8 TH/MM3 (1.8-7.7); BASOPHIL % 0.2 % (0.0-2.0); EOSINOPHIL % 0.6 % (0.0-4.0); HEMATOCRIT 41.5 % (35.0-46.0); HEMOGLOBIN 14.1 GM/DL (11.6-15.3); LYMPH % 29.3 % (9.0-44.0); LYMPHOCYTE # 2.2 TH/MM3 (1.0-4.8); MEAN CELL VOLUME 81.4 FL (80.0-100.0); MEAN CORPUSCULAR HEMOGLOBIN 27.6 PG (27.0-34.0); MEAN CORPUSCULAR HGB CONC 33.9 % (32.0-36.0); MEAN PLATELET VOLUME 7.8 FL (7.0-11.0); MONOCYTE # 0.5 TH/MM3 (0-0.9); NEUT % 62.9 % (16.0-70.0); PLATELET COUNT 287 TH/MM3 (150-450); RED CELL DISTRIBUTION WIDTH 14.2 % (11.6-17.2); WHITE BLOOD COUNT 7.6 TH/MM3 (4.0-11.0)
[2017-07-18 09:16] LABS: BICARBONATE 21.6 MEQ/L (21.0-32.0); CALCIUM 8.2 MG/DL (8.5-10.1); CREATININE 1.96 MG/DL (0.50-1.00)
[2017-07-18] MEDS: LACTOBACILLUS ACIDOPHILUS TAB PO SCH (09:17)
[2017-07-18] MEDS: DOCUSATE SODIUM 50 MG/SENNA 8.6 MG TAB PO SCH (09:17)
[2017-07-18] MEDS: SODIUM CHLORIDE 0.9% FLUSH 10 ML FLUSH IV FLUSH SCH (09:23)
[2017-07-18] MEDS ORDERED: LACT PO (10:32)
[2017-07-18] MEDS ORDERED: LEVA750T9 PO (10:33)
--- NOTE | 2017-07-18 10:33 | HHI.DS ---
Discharge Summary Admission Date Jul 15, 2017 at 15:26 Discharge Date: Jul 18, 2017 Admitting Diagnosis cellulitis, abscess (1) Abscess ICD Code: L02.91 - Cutaneous abscess, unspecified (2) IVDA Procedures Bediside I&D in ED on 07/15/17 Brief History - From Admission History from patient, ER physician communication, and review of medical records. Patient reported that she has been having this pain and swelling in her bilateral forearms for the past 1 week. Denies fever. Reports she does feel however warm subjectively. She admits that she injected IV drugs about 5 days ago. Uses heroin. Denies being diabetic. No prior history of endocarditis. On review of systems, patient reports of 2 days history of diarrhea. However states that he was very tiny little bit. Denies any blood in urine or stool. Denies any urinary burning or pain on urination or frequent urination. Denies any chest pain/palpitations/shortness of breath. CBC/BMP: 07/18/17 0806 07/18/17 0806 Significant Findings Laboratory Tests Test 07/15/17 12:50 07/16/17 07:56 07/16/17 12:55 07/18/17 08:06 White Blood Count 11.8 TH/MM3 (4.0-11.0) Neutrophils % (Manual) 72 % (16-70) Band Neutrophils % 7 % (0-6) Monocytes % 9 % (0-8) Neutrophils # (Manual) 9.3 TH/MM3 (1.8-7.7) Creatinine 0.38 MG/DL (0.50-1.00) 1.96 MG/DL (0.50-1.00) Albumin 2.8 GM/DL (3.4-5.0) Alkaline Phosphatase 122 U/L (45-117) C-Reactive Protein 12.20 MG/DL (0.00-0.30) Atypical Lymphocytes 9 % (0-0) Vancomycin Level Trough 14.6 MCG/ML (5.0-10.0) Calcium Level 8.2 MG/DL (8.5-10.1) Estimat Glomerular Filtration Rate 27 ML/MIN (>89) Imaging Last Impressions Upper Extremity Ultrasound 07/15/17 0000 Signed Impressions: Service Date/Time: Saturday, July 15, 2017 18:16 - CONCLUSION: 1. Fluid collections/phlegmonous masses in the antecubital fossa with measurements above likely related to IV drug abuse. Robert Diggs MD Upper Extremity CT 07/15/17 0000 Signed Impressions: Service Date/Time: Saturday, July 15, 2017 14:14 - CONCLUSION: There is a small heterogeneously enhancing fluid collection measuring approximately 1 cm x 5 mm along the dorsal aspect of the distal forearm just prior to the wrist. This has the appearance most consistent with a superficial area of abscess. There is fairly diffuse soft tissue swelling. No deep abscess is identified. Ronnie Nick MD Lower Extremity Ultrasound 07/15/17 0000 Signed Impressions: Service Date/Time: Saturday, July 15, 2017 18:10 - CONCLUSION: 1. Complex subcutaneous fluid collection in the right ankle in the area of redness and pain most characteristic of a subcutaneous abscess. Robert Diggs MD PE at Discharge GENERAL: Alert, orientedx3, NAD SKIN: Warm and dry. Tracking sarah on legs and arms. Multiple abscessed on upper arms. HEAD: Normocephalic. EYES: No scleral icterus. No injection or drainage. NECK: Supple, trachea midline. No JVD or lymphadenopathy. CARDIOVASCULAR: Regular rate and rhythm without murmurs, gallops, or rubs. RESPIRATORY: Breath sounds equal bilaterally. No accessory muscle use. GASTROINTESTINAL: Abdomen soft, non-tender, nondistended. MUSCULOSKELETAL: No cyanosis, or edema. Multiple small cutaneous abscesses on right and left arms, some with small amount of drainage. Erythema around right ankle. No fluctuance noted. Pt update on day of discharge The patient is in bed she appears to not acute distress at this time. No more diarrhea. No fever chills overnight. Wounds are healing. Denies chest pain or shortness of breath. No palpitations. Patient says she wants to go home today. Hospital Course The patient is a pleasant 47 year old female with a history of IV drug abuse who presented to the ER with multiple painful abscesses on her forearms and legs. Abscesses to the left wrist, left forearm and right AC area were drained. IV drug abuse Multiple skin abscesses in bilateral forearm. Possible left lower extremity near the ankle abscess. U/S revealed subcutaneous fluid connections of UE and LE Patient has abscess drained one on the right side and 2 on the left side of her bilateral forearms. These abscesses were drained after the CT was obtained. CT was done that of left upper extremity. CT revealed superficial abscesses with no evidence of deep abscesses. The left lower extremity was thought to be nonfluctuant and not abscess formation. Ortho consulted, Dr. Muñoz recommends continuation of IV antibiotics and repeat bedside I&D's, no role for ortho surgery at this time. Received vancomycin and Zosyn IV abx. Wound cultures with Enterococcus cloacae . Blood cultures negative to date. Patient improved. Afebrile. VSS. discharged home to follow-up with PCP as OP. Patient was counselled extensively regarding IV drug use patient expressed understanding. Pt Condition on Discharge: Stable Discharge Disposition: Disch w/ Home Health Serv Discharge Time: > 30 minutes Discharge Instructions DIET: Follow Instructions for: As Tolerated, No Restrictions Activities you can perform: Regular-No Restrictions Follow up Referrals: PCP Follow-up - 2-3 Days New Medications: Levofloxacin (Levaquin) 750 Mg Tablet 750 MG PO DAILY for Infection for 10 Days, #10 TAB 0 Refills Lactobacillus Acidophilus (Acidophilus/l-Sporogenes) 35 Million Cell-25 Million Cell Tab 1 TAB PO Q12HR for probiotic take 2 hrs appart, #30 TAB Take 2 hrs appart of abx Valerie Cutler MD Jul 18, 2017 10:33
[2017-07-18] MEDS ORDERED: PHARMACY ORDERED LAB ONE (11:45)
== END 2017-07-18 11:35 | disposition home or self-care (01) | DRG 603 ==
LOC: NEPD 10:49 → NEDA 15:26 → N05B 19:27
PROVIDERS: ADMIT Hospitalist; ATTEND Hospitalist
PROC: 0H9CXZZ Drainage of Left Upper Arm Skin, External Approach (ICD-10-PCS; principal; 2017-07-15)
PROC: 0H9BXZZ Drainage of Right Upper Arm Skin, External Approach (ICD-10-PCS; 2017-07-15)
DX: L02.415 Cutaneous abscess of right lower limb (principal); F11.20 Opioid dependence, uncomplicated; L02.414 Cutaneous abscess of left upper limb; L02.413 Cutaneous abscess of right upper limb; L03.90 Cellulitis, unspecified; L02.416 Cutaneous abscess of left lower limb; R19.7 Diarrhea, unspecified; R11.2 Nausea with vomiting, unspecified; F12.90 Cannabis use, unspecified, uncomplicated; F17.210 Nicotine dependence, cigarettes, uncomplicated
CPT/HCPCS: 10061; 73201; 76882; 76937; 80048; 80053; 80202; 84703; 85007; 85025; 85027; 86140; 87040; 87070; 87077; 87186; 87205; 96361; 96365; J0780; J1200; J1885; J2270; J2543; J3370; J7030; J7050; Q0163; Q9967